=== PATIENT | female | born 1990 ===

== ENCOUNTER 2020-11-22 11:41 | Outpatient (CLI) | payer OTHER ==
[2020-11-23] MEDS ORDERED: Tylenol #3 PO (13:08)
== END 2020-11-22 11:45 | disposition home or self-care (01) ==
LOC: LAB 11:41
PROVIDERS: ATTEND Obstetrics & Gynecology
DX: Z03.818 Encounter for observation for suspected exposure to other biological agents ruled out (principal); Z20.828 Contact with and (suspected) exposure to other viral communicable diseases

== ENCOUNTER 2020-11-23 07:07 | Day surgery (SDC) | payer OTHER ==
[~2020-11-23] VITALS: Ht 154.9 cm; Wt 77.1 kg
[2020-11-23] MEDS ORDERED: Tylenol #3 PO (13:08)
== END 2020-11-23 17:40 | disposition home or self-care (01) ==
LOC: O/R 07:07 → CIR.AMB 07:07 → SURH 07:07 → EDSTATUS 09:00 → SURH 09:00 → CIR.AMB 17:40 → O/R 17:40 → SURH 22:00
PROVIDERS: ATTEND Obstetrics & Gynecology
PROC: 0DBW0ZZ Excision of Peritoneum, Open Approach (ICD-10-PCS; principal; 2020-11-23 22:00)
DX: N80.3 Endometriosis of pelvic peritoneum (principal); R10.2 Pelvic and perineal pain; Z98.891 History of uterine scar from previous surgery